=== PATIENT | male | born 1970 | race African-American/Black ===

== ENCOUNTER 2017-01-23 11:14 | Emergency (ER) | payer OTHER ==
[~2017-01-23] VITALS: Ht 177.8 cm; Wt 89.0 kg
[2017-01-23] MEDS ORDERED: LISI-661 PO (11:27)
[2017-01-23 12:34] VITALS: BP 144/87
== END 2017-01-23 13:08 | disposition home or self-care (01) ==
LOC: EMS 11:19
DX: I10 Essential (primary) hypertension (principal); F17.210 Nicotine dependence, cigarettes, uncomplicated
CPT/HCPCS: 99283